=== PATIENT | female | born 1970 | race African-American/Black ===

== ENCOUNTER 2024-11-14 19:46 | Emergency (ER) | payer MEDICARE, OTHER ==
[~2024-11-14] VITALS: Ht 170.2 cm; Wt 145.0 kg
[2024-11-14 19:52] VITALS: O2SAT 100
[2024-11-14 19:57] VITALS: BP 121/73; PULSE 100; RESP 16; TEMP 36.6; O2SAT 99
[2024-11-14 23:00] LABS: BASOPHILS % 0.7 % (0.0-2.0); DIFFERENTIAL COMMENT 0; EOSINOPHILS % 1.2 % (0.0-5.0); HEMATOCRIT. 35.2 % (36.0-48.0); LYMPHOCYTES % 38.1 % (20.0-50.0); MEAN CORPUSCULAR HEMOGLOBIN 24.3 pg (28.0-32.0); MEAN CORPUSCULAR HGB CONC 31.3 g/dL (31.0-37.0); MEAN CORPUSCULAR VOLUME 77.6 fL (81.0-99.0); MEAN PLATELET VOLUME 7.5 fl (7.4-10.4); MONOCYTES % 6.6 % (2.0-8.0); NEUTROPHILS % 53.4 % (40.0-76.0); PLATELET 293 x1000/uL (130-400); RED BLOOD CELL COUNT 4.54 mill/uL (4.2-5.4); RED CELL DISTRIBUTION WIDTH 15.4 % (11.6-14.6)
[2024-11-14 23:13] LABS: CHLORIDE 106 mEq/L (98-107); POTASSIUM 3.9 mEq/L (3.5-5.1); SODIUM 141 mEq/L (136-145)
[2024-11-14 23:14] LABS: CARBON DIOXIDE 28 mEq/L (21-32); INR 0.9; PROTHROMBIN TIME 9.9 sec (9.6-11.0)
[2024-11-14 23:15] LABS: CALCIUM 9.2 mg/dL (8.7-10.4)
[2024-11-14 23:19] LABS: CREATININE 0.9 mg/dL (0.6-1.0); GLUCOSE 100 mg/dL (70-105)
[2024-11-14 23:20] LABS: UREA NITROGEN BLOOD 13 mg/dL (9-23)
[2024-11-14 23:21] LABS: ALANINE AMINOTRANSFERASE 9 IU/L (10-49); ALBUMIN 4.4 g/dL (3.2-4.8); ASPARTATE AMINOTRANSFERASE 14 IU/L (<34)
[2024-11-14 23:22] LABS: BILIRUBIN DIRECT 0.1 mg/dL (<=3.0); BILIRUBIN TOTAL 0.4 mg/dL (0.1-1.0); PROTEIN TOTAL 6.8 g/dL (6.0-8.3)
[2024-11-14 23:23] LABS: TROPONIN I HIGH SENSITIVITY < 4 ng/L (3.0-34)
[2024-11-14] MEDS ORDERED: HYDR26CR2 TP (23:23)
== END 2024-11-14 23:41 | disposition home or self-care (01) ==
LOC: ER 19:46
DX: K64.4 Residual hemorrhoidal skin tags (principal); D64.9 Anemia, unspecified; Z88.1 Allergy status to other antibiotic agents; Z98.890 Other specified postprocedural states
CPT/HCPCS: 36415; 80048; 80076; 84484; 85025; 86850; 86900; 99283